=== PATIENT | female | born 1985 ===

== ENCOUNTER → 2021-04-08 | Outpatient (CLI) | payer OTHER | END | disposition home or self-care (01) | LOC: PRENATAL 08:30 | PROVIDERS: ATTEND Obstetrics & Gynecology Maternal & Fetal Medicine | DX: O35.0XX1 Maternal care for (suspected) central nervous system malformation in fetus, fetus 1 (principal); O35.3XX1 Maternal care for (suspected) damage to fetus from viral disease in mother, fetus 1; O98.512 Other viral diseases complicating pregnancy, second trimester; O34.12 Maternal care for benign tumor of corpus uteri, second trimester; Z36.89 Encounter for other specified antenatal screening; Z3A.21 21 weeks gestation of pregnancy ==

== ENCOUNTER 2021-08-02 12:15 | Inpatient (IN) | payer OTHER ==
[~2021-08-02] VITALS: Ht 172.7 cm; Wt 99.8 kg
[2021-08-10] MEDS ORDERED: PRENATAL CAPLE1 EAC1 PO (00:53)
== END 2021-08-13 14:33 | disposition home or self-care (01) | DRG 807 ==
LOC: LDR 08-10 00:44 → SURG-SUITE 08-10 11:46 → SURH 08-11 12:15 → SURG-SUITE 08-13 14:33
PROVIDERS: ADMIT Obstetrics & Gynecology; ATTEND Obstetrics & Gynecology
PROC: 10E0XZZ Delivery of Products of Conception, External Approach (ICD-10-PCS; principal; 2021-08-10)
PROC: 0UQGXZZ Repair Vagina, External Approach (ICD-10-PCS; 2021-08-10)
PROC: 4A1HXFZ Monitoring of Products of Conception, Cardiac Rhythm, External Approach (ICD-10-PCS; 2021-08-10)
DX: O99.824 Streptococcus B carrier state complicating childbirth (principal); Z37.0 Single live birth; O71.4 Obstetric high vaginal laceration alone; Z3A.39 39 weeks gestation of pregnancy

== ENCOUNTER 2024-10-14 14:54 | Outpatient (CLI) | payer OTHER ==
[~2024-10-14 14:54] MED LIST: PRENATAL CAPLE1 EAC1 PO
== END 2024-10-14 14:57 | disposition home or self-care (01) ==
LOC: PRENATAL 14:54
PROVIDERS: ATTEND Obstetrics & Gynecology Maternal & Fetal Medicine
DX: O36.80X0 Pregnancy with inconclusive fetal viability, not applicable or unspecified (principal); Z36.82 Encounter for antenatal screening for nuchal translucency; Z36.9 Encounter for antenatal screening, unspecified; O09.529 Supervision of elderly multigravida, unspecified trimester; Z3A.13 13 weeks gestation of pregnancy

== ENCOUNTER 2024-11-28 10:42 | Outpatient (CLI) | payer OTHER | END 2024-11-28 10:43 | disposition home or self-care (01) | LOC: PRENATAL 10:42 | PROVIDERS: ATTEND Obstetrics & Gynecology Maternal & Fetal Medicine | DX: O44.00 Complete placenta previa NOS or without hemorrhage, unspecified trimester (principal); O09.529 Supervision of elderly multigravida, unspecified trimester; Z3A.20 20 weeks gestation of pregnancy ==

== ENCOUNTER → 2025-01-16 10:47 | Outpatient (CLI) | payer OTHER | END | disposition home or self-care (01) | LOC: PRENATAL 10:47 | PROVIDERS: ATTEND Obstetrics & Gynecology Maternal & Fetal Medicine | DX: O26.849 Uterine size-date discrepancy, unspecified trimester (principal); O36.8199 Decreased fetal movements, unspecified trimester, other fetus; O09.529 Supervision of elderly multigravida, unspecified trimester; Z3A.28 28 weeks gestation of pregnancy ==

== ENCOUNTER 2025-02-20 14:31 | Outpatient (CLI) | payer OTHER | END 2025-02-20 14:32 | disposition home or self-care (01) | LOC: PRENATAL 14:31 | PROVIDERS: ATTEND Obstetrics & Gynecology Maternal & Fetal Medicine | DX: O26.849 Uterine size-date discrepancy, unspecified trimester (principal); O36.8199 Decreased fetal movements, unspecified trimester, other fetus; O09.529 Supervision of elderly multigravida, unspecified trimester; Z3A.33 33 weeks gestation of pregnancy ==

== ENCOUNTER 2025-04-10 07:53 | Inpatient (IN) | payer OTHER ==
[~2025-04-10] VITALS: Ht 172.7 cm; Wt 3.2 kg
[2025-04-10 08:14] VITALS: BP 108/74
[2025-04-10] MEDS ORDERED: MISOPROSTOL 25 MCG/4 ML GEL.W.APPL VAG ONE ×2 (08:45→11:45)
[2025-04-10 08:46] LABS: BASO % 0.3 % (0.1-1.2); EOS # 0.05 (0.04-0.54); EOS % 0.6 % (0.7-7.0); LYMPH # 1.34 (1.18-3.74); LYMPH % 17.2 % (19.3-53.1); MEAN PLATELET VOLUME 11.00 fl (9.4-12.4); MONO # 0.45 (0.24-0.82); MONO % 5.8 % (4.7-12.5); NEUT # 5.88 (1.56-6.13); NEUT % 75.5 % (34.0-71.1); RED CELL DISTRIBUTION WIDTH 14.8 % (11.6-14.4); URINE APPEARANCE Turbid; URINE BILIRRUBIN Negative (NEGATIVE); URINE BLOOD Negative; URINE COLOR Dark Yellow; URINE GLUCOSE Negative (NEGATIVE); URINE KETONE Trace (NEGATIVE); URINE LEUKOCYTE Moderate; URINE NITRATE Negative; URINE PROTEIN 30 (NEGATIVE); URINE UROBILINOGEN 1.0 E.U./dl
[2025-04-10 08:55] LABS: URINE CAST 2.20 uL (0.0-1.40); URINE EPITHELIAL CELLS 194.5 uL (0.0-38.8); URINE RBC 16.9 uL (0.0-20.8); URINE WBC 159.1 uL (0.0-23.2)
[2025-04-10] MEDS ORDERED: LABETALOL HCL100 MG PO (09:00)
[2025-04-10 09:20] LABS: INR 0.97
[2025-04-10] MEDS ORDERED: RINGERS SOLUTION,LACTATED 1,000 ML IV SCH (09:30)
[2025-04-10 09:49] LABS: URINE BACTERIA > 9821.5 uL (0.0-1933)
[2025-04-10 09:53] LABS: URINE SPERM MANY
[2025-04-10 09:54] LABS: URINE CRYSTALS FEW /HPF
[2025-04-10] MEDS ORDERED: MORPHINE SULFATE 4 MG/ML VIAL IV ONE ×2 (12:15→20:10)
[2025-04-10] MEDS ORDERED: OXYTOCIN 500 ML IV SCH (12:15)
[2025-04-10 12:23] VITALS: BP 122/67
[2025-04-10 15:25] VITALS: BP 128/80
[2025-04-10] MEDS ORDERED: MORPHINE SULFATE 4 MG/ML CARTRIDGE IV SCH (21:00)
[2025-04-10 21:26] VITALS: BP 113/72
[2025-04-10] MEDS ORDERED: KETOROLAC TROMETHAMINE 60 MG VIAL IM ONE (22:00)
[2025-04-11] VITALS: BP 111/70
[2025-04-11 04:00] VITALS: BP 110/67
[2025-04-11 07:03] LABS: BASO % 0.2 % (0.1-1.2); EOS # 0.05 (0.04-0.54); EOS % 0.5 % (0.7-7.0); LYMPH # 1.35 (1.18-3.74); LYMPH % 14.2 % (19.3-53.1); MEAN PLATELET VOLUME 11.00 fl (9.4-12.4); MONO # 0.45 (0.24-0.82); MONO % 4.7 % (4.7-12.5); NEUT # 7.63 (1.56-6.13); NEUT % 80.2 % (34.0-71.1); RED CELL DISTRIBUTION WIDTH 14.4 % (11.6-14.4)
[2025-04-11 08:00] VITALS: BP 104/67
[2025-04-11] MEDS ORDERED: SIMETHICONE 125 MG CAPSULE PO SCH (08:00)
[2025-04-11] MEDS ORDERED: DOCUSATE SODIUM 100MG CAP PO SCH (08:00)
[2025-04-11] MEDS ORDERED: PNV,CALCIUM 72/IRON/FOLIC ACID 1 TAB TABLET PO SCH (08:00)
[2025-04-11 17:14] VITALS: BP 118/78
[2025-04-11 23:59] VITALS: BP 112/73
[2025-04-12 08:39] VITALS: BP 114/80
[2025-04-12 16:00] VITALS: BP 116/79
[2025-04-13] VITALS: BP 102/67
[2025-04-13 08:59] VITALS: BP 114/69
== END 2025-04-13 13:33 | disposition home or self-care (01) | DRG 785 ==
LOC: LDR 07:53 → OB/GYN 07:53 → LDR 09:53 → OB/GYN 11:25
PROVIDERS: ADMIT Obstetrics & Gynecology; ATTEND Obstetrics & Gynecology
PROC: 0UB70ZZ Excision of Bilateral Fallopian Tubes, Open Approach (ICD-10-PCS; 2025-04-10)
PROC: 4A1HXCZ Monitoring of Products of Conception, Cardiac Rate, External Approach (ICD-10-PCS; 2025-04-10)
PROC: 10D00Z1 Extraction of Products of Conception, Low, Open Approach (ICD-10-PCS; principal; 2025-04-10 16:15)
DX: O33.8 Maternal care for disproportion of other origin (principal); O34.211 Maternal care for low transverse scar from previous cesarean delivery; Z30.2 Encounter for sterilization; Z37.0 Single live birth; Z3A.39 39 weeks gestation of pregnancy